=== PATIENT | female | born 1975 | race Caucasian/White ===

== ENCOUNTER → 2018-02-01 | Outpatient (CLI) | payer BC ==
--- NOTE | 2018-02-01 16:07 | RADIOLOGY IMAGING REPORT ---
FACILITY: [facility] PATIENT NAME: MARISSA SCHULTZ : [id number] MR: [id number] V: [id number] EXAM DATE: [id number] ORDERING PHYSICIAN: RADHA SNOWDEN TECHNOLOGIST: Irais Goetz PROCEDURE:BILATERAL DIGITAL SCREENING MAMMOGRAM WITH CAD ASSISTED INTERPRETATION & 3D TOMOSYNTHESIS COMPARISON:None. INDICATIONS:SCREENING FINDINGS: The breast parenchyma is heterogeneously dense. There are asymmetries in the lateral aspect of the Right breast with potential mass. There is an oval circumscribed 24mm mass in the posterior lateral aspect of the Left breast. DIAGNOSTIC CATEGORY 0--INCOMPLETE: NEED ADDITIONAL IMAGING EVALUATION. RECOMMENDATIONS: ADDITIONAL MAMMOGRAPHIC VIEWS REQUIRED: RIGHT BREAST. ULTRASOUND: BILATERAL BREASTS. IMPRESSION: BIRADS 0: Incomplete. 1. Right breast diagnostic mammogram. Spot compression imaging of the Right breast asymmetries in the 9-10 o'clock area. 2. Ultrasound of the Right breast if indicated by additional views. 3. Left breast Ultrasound of the posterior 3 o'clock area mass. Dictated by: Bj Connelly on 02/01/2018 at 15:31 Transcribed by: PETE on 02/01/2018 at 15:38 Approved by: Bj Connelly on 02/01/2018 at 16:06 [facility]
== END ==
LOC: MAMO 02:03
PROVIDERS: ATTEND Nurse Practitioner Psychiatric/Mental Health
DX: Z12.31 Encounter for screening mammogram for malignant neoplasm of breast (principal); R92.8 Other abnormal and inconclusive findings on diagnostic imaging of breast
CPT/HCPCS: 77063; 77067

== ENCOUNTER → 2018-02-22 | Outpatient (CLI) | payer BC ==
--- NOTE | 2018-02-23 13:13 | RADIOLOGY IMAGING REPORT ---
[place] [facility] [place] NAME: MARISSA SCHULTZ : [id number] MR: [id number] V: [id number] EXAM DATE: [id number] ORDERING PHYSICIAN: RADHA SNOWDEN TECHNOLOGIST: Sarah Meyer PROCEDURE:US BILATERAL BREAST COMPARISON:Today's diagnostic mammogram. INDICATIONS:FURTHER EVAL FINDINGS: In the 12 o'clock position of the Right breast there is a 7 x 6 x 4mm solid well circumscribed ovoid hypoechoic nodule with acoustic enhancement. In the11 o'clock position of the Right breast there are 2 small cysts measuring 4mm and 3mm. These findings may account for the recent mammographic findings although a 6 month follow-up Right breast Ultrasound and mammogram recommended. In the 12 o'clock position of the Left breast 3cm from the nipple there is a 6.1 x 6.8 x 7.9mm ovoid non-parallel hypoechoic mass with slightly lobular margins. Ultrasound guided core biopsy of this mass is recommended. In the 2 o'clock position of the Left breast (this is labeled 11 o'clock on the images) there is a 4.4 x 4 x 3.1mm ovoid well circumscribed parallel mass with acoustic enhancement and no internal vascularity. This could represent a debris filled cyst or possible small fibroadenoma however 6 month follow-up of this nodule is recommended. In the 2-3 o'clock position of the Left breast (this is labeled 9-10 o'clock on the images) there is a non-circumscribed hypoechoic mass with indistinct borders and internal vascularity. Ultrasound guided core biopsy of this mass is recommended. DIAGNOSTIC CATEGORY 4--SUSPICIOUS FOR MALIGNANCY. RECOMMENDATIONS: SIX MONTH FOLLOW-UP DIAGNOSTIC MAMMOGRAM: RIGHT BREAST. SIX MONTH FOLLOW-UP ULTRASOUND: BILATERAL BREASTS. ULTRASOUND-GUIDED CORE BIOPSY: LEFT BREAST. IMPRESSION: BIRADS 4: Suspicious for malignancy. 1. Ultrasound guided core biopsy of the 12 o'clock mass and the 2-3 o'clock mass in the Left breast recommended for further evaluation. 2. 6 month follow-up bilateral breast Ultrasound is recommended for the other above described nodules. 3. A 6 month follow-up Right mammogram is recommended to evaluate stability of the parenchymal pattern. 4. These findings were discussed with the patient at the time of the examination. Dictated by: Lis Jenkins M.D. on 02/22/2018 at 17:02 Transcribed by: PETE on 02/23/2018 at 9:08 Approved by: Lis Jenkins M.D. on 02/23/2018 at 13:12 [facility]
--- NOTE | 2018-02-23 13:13 | RADIOLOGY IMAGING REPORT ---
FACILITY: [facility] - [place] PATIENT NAME: MARISSA SCHULTZ : [id number] MR: [id number] V: [id number] EXAM DATE: [id number] ORDERING PHYSICIAN: RADHA SNOWDEN TECHNOLOGIST: Sarah Sanchez PROCEDURE:RIGHT DIGITAL DIAGNOSTIC MAMMOGRAM WITH CAD ASSISTED INTERPRETATION & 3D TOMOSYNTHESIS COMPARISON:Prior mammograms 02/01/18. INDICATIONS:FURTHER EVAL FINDINGS: The patient returns for mediolateral peripheral view of the Right breast in addition to Spot compression views in the Right CC & MLO projections. Several small asymmetries appear to persist in the lateral portion of the Right breast on the Right CC view and the upper portion of the Right breast on the Right MLO view and mediolateral view of the Right breast. There are several small cysts and well circumscribed hypoechoic nodules identified on Today's Right breast Ultrasound. DIAGNOSTIC CATEGORY 4--SUSPICIOUS FOR MALIGNANCY. RECOMMENDATIONS: SIX MONTH FOLLOW-UP DIAGNOSTIC MAMMOGRAM: RIGHT BREAST. SIX MONTH FOLLOW-UP ULTRASOUND: BILATERAL BREASTS. ULTRASOUND-GUIDED CORE BIOPSY: LEFT BREAST. IMPRESSION: BIRADS 4: Suspicious for malignancy. Ultrasound guided core biopsy of the 2 solid hypoechoic masses described on Today's Left breast Ultrasound recommended for further evaluation. A 6 month follow-up bilateral Ultrasound recommended in Today's Ultrasound report. A 6 month Right mammogram is recommended to evaluate for stability of the parenchymal pattern. Dictated by: Lis Jenkins M.D. on 02/22/2018 at 17:06 Transcribed by: PETE on 02/23/2018 at 8:49 Approved by: Lis Jenkins M.D. on 02/23/2018 at 13:12 [facility]
== END ==
LOC: MAMO 00:44
PROVIDERS: ATTEND Nurse Practitioner Psychiatric/Mental Health
DX: R92.2 Inconclusive mammogram (principal)
CPT/HCPCS: 77061; 77065